=== PATIENT | female | born 1995 | race American Indian/Alaskan Native ===

== ENCOUNTER 2017-12-03 07:19 | Day surgery (SDC) | payer MEDICAID ==
[2017-12-03] MEDS ORDERED: NACL 0.9% 1000 ML 1,000 ML ONE (09:44)
--- NOTE | 2017-12-03 10:04 | Anesthesia Consultation ---
Anesthesia Consult and Med Hx Date of service: 12/03/17 - Airway Anesthetic Teeth Evaluation: Good ROM Head & Neck: Adequate Mental/Hyoid Distance: Adequate Mallampati Class: Class II Intubation Access Assessment: Probably Good (redundant tissue) - Pulmonary Exam CTA: Yes - Cardiac Exam Cardiac Exam: RRR - Pre-Operative Health Status ASA Pre-Surgery Classification: ASA3 Proposed Anesthetic Plan: MAC - Pre-Anesthesia Comment Pre-Anesthesia Comments: history of migraines - Pulmonary Hx Smoking: No Hx Asthma: Yes (asthmatic episode 1 week ago w/ need for nebulizer treatment) Hx Respiratory Symptoms: Yes (steroids dc'd in Jul & asthma flares up frequently since) SOB: No (denies SOB walking level ground and up flights of stairs) COPD: No Home Oxygen Therapy: No Hx Pneumonia: No Hx Sleep Apnea: No (only snores when sick, no diagnosis of ABNER) - Cardiovascular System Hx Hypertension: No Hx Coronary Artery Disease: No Hx Heart Attack/AMI: No Hx Angina: No Hx Percutaneous Transluminal Coronary Angioplasty (PTCA): No Hx Cardia Arrhythmia: No Hx Pacemaker: No Hx Internal Defibrillator: No Hx Valvular Heart Disease: No Hx Heart Murmur: No Hx Peripheral Vascular Disease: No - Central Nervous System Hx Neuromuscular Disorder: No Hx Seizures: No CVA: No Hx Back Pain: No Hx Psychiatric Problems: No - Gastrointestinal Hx Ulcer: No Hx Gastroesophageal Reflux Disease: No - Endocrine Hx Renal Disease: No Hx End Stage Renal Disease: No Hx Cirrhosis: No Hx Liver Disease: No Hx Insulin Dependent Diabetes: Yes (DKA in Jul BG>800; accu check 140 this am) Hx Non-Insulin Dependent Diabetes: No Hx Thyroid Disease: No Hx Hypothyroidism: No Hx Hyperthyroidism: No - Hematic Hx Anemia: No Hx Sickle Cell Disease: No - Other Systems Hx Alcohol Use: No Hx Substance Use: No Hx Cancer: No Hx Obesity: Yes (BMI 53.9)
[2017-12-03] MEDS ORDERED: NACL 0.9% 1000 ML 1,000 ML IV SCH (11:00)
[2017-12-03] MEDS ORDERED: DIPRIVAN 10 MG/ML IV ONE ×2 (11:48→12:18)
--- NOTE | 2017-12-03 12:07 | Operative Report ---
Operative Report Operative Report: PERATIVE REPORT - EGD DATE 12/03/17 SURGERY: Upper endoscopy. SURGEON: Dr. Perez [employer] SUPERVISOR: Ez Garcia DO PRE OP DX:dyspepsia, morbid obesity POST OP DX: hiatal hernia TYPE OF ANESTHESIA: MAC. ESTIMATED BLOOD LOSS: None. COMPLICATIONS: None. SPECIMENS REMOVED: None. FINDINGS: 1. Small hiatal hernia. 2. Otherwise, normal esophagus, stomach and first portion of duodenum. INDICATIONS:INDICATION FOR PROCEDURE: Patient is a 22-year-old female with a long history of morbid obesity. She is planned to have a weight loss procedure and is here for preoperative planning EGD. PROCEDURE DETAILS: After consent was reviewed, patient was taken back to the operating room where patient was placed in the left lateral decubitus position and a bite block was placed in the mouth. After a time-out was called, MAC anesthesia was initiated. I then passed the endoscope into her oropharynx, into her esophagus, visualized the entire esophagus, which was all within normal limits. I then visualized the stomach and the first portion of the duodenum and there were no abnormalities I could clearly visualize. I then retroflexed the scope in the stomach and visualized the hiatus and I could see a small hiatal hernia. I then desufflated the stomach and removed the endoscope. Patient tolerated procedure well and was transferred to recovery room in good and stable condition.
--- NOTE | 2017-12-03 12:08 | Discharge Summary ---
Providers - Providers Attending physician: CLAIRE CARRILLO Primary care physician: DAVID MELARA Hospitalization Procedures: egd Hospital course: 22 y.o. F presented for EGD. She tolerated the procedure well. She was discharged home the same day. Disposition: - TO HOME OR SELFCARE Core Measure Documentation - Palliative Care Palliative Care/ Comfort Measures: Not Applicable - Core Measures Any of the following diagnoses?: none Exam - Physical Exam Narrative exam: no change from prior - Constitutional Vitals: Temp Pulse Resp BP Pulse Ox 98.6 F 70 19 142/86 97 12/03/17 10:11 12/03/17 10:11 12/03/17 10:11 12/03/17 10:11 12/03/17 10:11 Plan Follow up with: DAVID MELARA MD [Primary Care Provider] - 7 Days
[2017-12-03 12:57] VITALS: BP 133/73
[2017-12-03] MEDS ORDERED: HURRICAINE ONE 20% TOPICAL SPRAY MM (14:08)
[2017-12-03] MEDS ORDERED: HURRICAINE ONE 20% TOPICAL SPRAY MM NR (15:00)
== END 2017-12-03 07:20 | disposition home or self-care (01) ==
LOC: GIO 07:19
PROVIDERS: ATTEND Specialist
DX: K44.9 Diaphragmatic hernia without obstruction or gangrene (principal); J45.909 Unspecified asthma, uncomplicated; E66.01 Morbid (severe) obesity due to excess calories; Z68.43 Body mass index [BMI] 50.0-59.9, adult; Z88.0 Allergy status to penicillin; Z88.1 Allergy status to other antibiotic agents; Z88.6 Allergy status to analgesic agent; Z91.013 Allergy to seafood; Z91.018 Allergy to other foods; Z79.899 Other long term (current) drug therapy
CPT/HCPCS: 43235; 81025; 82962; J2704; J7030

== ENCOUNTER 2017-12-24 06:00 | Inpatient (IN) | payer MEDICAID ==
[~2017-12-24 06:00] MED LIST: APRESOLINE IV PRN; MARCAINE 0.5% INFILTRATI ONE; MYLICON PO PRN; NACL 0.9% IR ONE; REGLAN IV PRN; XYLOCAINE 1% 20 mL INFILTRATI ONE
[2017-12-24] MEDS ORDERED: LOVENOX SUB-Q NR (07:00)
[2017-12-24] MEDS ORDERED: TRANSDERM-SCOP TD SCH (07:00)
[2017-12-24] MEDS ORDERED: LEVAQUIN 500MG/100ML 500 MG/100 ML BAG IV NR (07:00)
[2017-12-24] MEDS ORDERED: FLAGYL 500 MG/100 ML 500 MG/100 ML BAG IV NR (07:00)
[2017-12-24] MEDS ORDERED: MORPHINE IV PRN (08:50)
[2017-12-24] MEDS ORDERED: VERSED IV PRN (13:09)
[2017-12-24] MEDS ORDERED: ZOFRAN IV PRN (13:09)
--- NOTE | 2017-12-24 13:13 | Anesthesia Consultation ---
Anesthesia Consult and Med Hx Date of service: 12/24/17 - Airway Anesthetic Teeth Evaluation: Good ROM Head & Neck: Adequate Mental/Hyoid Distance: Adequate Mallampati Class: Class III Intubation Access Assessment: Probably Good - Pulmonary Exam CTA: Yes - Cardiac Exam Cardiac Exam: RRR - Pre-Operative Health Status ASA Pre-Surgery Classification: ASA3 Proposed Anesthetic Plan: General - Pulmonary Hx Smoking: No Hx Asthma: Yes Hx Respiratory Symptoms: Yes (steroids dc'd in Jul & asthma flares up frequently since) SOB: No (denies SOB walking level ground and up flights of stairs) COPD: No Hx Pneumonia: No Hx Sleep Apnea: No (only snores when sick, no diagnosis of ABNER) - Cardiovascular System Hx Hypertension: No Hx Coronary Artery Disease: No Hx Heart Attack/AMI: No Hx Angina: No Hx Percutaneous Transluminal Coronary Angioplasty (PTCA): No Hx Cardia Arrhythmia: No Hx Pacemaker: No Hx Internal Defibrillator: No Hx Valvular Heart Disease: No Hx Heart Murmur: No Hx Peripheral Vascular Disease: No - Central Nervous System Hx Neuromuscular Disorder: No Hx Seizures: No CVA: No Hx Back Pain: Yes Hx Psychiatric Problems: No - Gastrointestinal Hx Ulcer: Yes Hx Gastroesophageal Reflux Disease: No - Endocrine Hx Renal Disease: No Hx End Stage Renal Disease: No Hx Cirrhosis: No Hx Liver Disease: No Hx Insulin Dependent Diabetes: Yes (DKA in Jul BG>800; accu check 140 this am) Hx Non-Insulin Dependent Diabetes: No Hx Thyroid Disease: No Hx Hypothyroidism: No Hx Hyperthyroidism: No - Hematic Hx Anemia: No Hx Sickle Cell Disease: No - Other Systems Hx Alcohol Use: No Hx Substance Use: No Hx Cancer: No Hx Obesity: Yes
--- NOTE | 2017-12-24 13:14 | Anesthesia Day of Surgery ---
Anesthesia Day of Surgery - Day of Surgery Patient Examined: Yes Patient H&P Reviewed: Yes Patient is NPO: Yes
[2017-12-24] MEDS ORDERED: NACL BACTERIOSTATIC INFILTRATI ONE (13:50)
[2017-12-24] MEDS ORDERED: PEPCID IV NR (14:00)
[2017-12-24] MEDS: LACTATED RINGERS 1,000 ML IV SCH ×2 (14:10→20:46)
[2017-12-24] MEDS ORDERED: DIPRIVAN 10 MG/ML IV ONE (14:54)
[2017-12-24] MEDS ORDERED: SUBLIMAZE ONE (14:54)
[2017-12-24] MEDS ORDERED: XYLOCAINE 1% 20 mL ONE (14:56)
[2017-12-24] MEDS ORDERED: MARCAINE 0.5% 30 ML INFILTRATI ONE (14:57)
[2017-12-24 15:02] LABS: Bacteria,Urine 2+ /HPF (Negative); Bilirubin,Urine NEG (Negative); Blood,Urine NEG (Negative); Color,Urine Amber (Yellow); Mucus,Urine 3+ /HPF; Urobilinogen,Urine < 2.0 mg/dL (<2.0)
[2017-12-24 15:11] LABS: Alanine Aminotransferase 12 units/L (7-56); Albumin 4.4 g/dL (3.9-5); BUN/Creatinine Ratio 13; Blood Urea Nitrogen 8 mg/dL (7-17); Calcium 9.4 mg/dL (8.4-10.2); Hemolysis Index 49
[2017-12-24] MEDS ORDERED: ZOFRAN ONE (17:18)
[2017-12-24] MEDS ORDERED: XYLOCAINE MPF 2% ONE (17:18)
[2017-12-24] MEDS ORDERED: BLOXIVERZ ONE ×2 (17:19)
[2017-12-24] MEDS ORDERED: ROBINUL ONE (17:19)
[2017-12-24] MEDS: DILAUDID IV PRN ×3 (17:29→20:29)
[2017-12-24] MEDS ORDERED: ZEMURON IV ONE (17:30)
--- NOTE | 2017-12-24 20:31 | Operative Report ---
Operative Report Operative Report: PREOPERATIVE DIAGNOSES: Morbid obesity POSTOPERATIVE DIAGNOSES: 1.same as pre-op SURGEON: Dr. Perez WASTE HAND: Dr.Speights Thomas DO PROCEDURE: 1. laparoscopic sleeve gastrectomy 2. laparoscopic hiatal hernia repair ANESTHESIA: General. ESTIMATED BLOOD LOSS: 5 mL. COMPLICATIONS: None. SPECIMEN: Partial gastrectomy. FINDINGS: 1. hiatal hernia INDICATION FOR PROCEDURE: Patient is 22 year-old with a long history of morbid obesity. The patient has tried multiple efforts at weight loss without alf success. Pt is here today for sleeve gastrectomy. PROCEDURE IN DETAIL: After consent was reviewed, patient was taken back to the operating room, where patient was placed supine on the bed with both arms out. The patient's legs were doubly strapped to the bed. Patient had a foot board in place. Patient had a body warmer placed by anesthesia. Patient was then prepped and draped in normal sterile surgical fashion. After a time-out was called, a stab incision in the left upper quadrant and inserted a veress needle through this incision and insufflated the abdomen to 18 mmHg pressure. Once the abdomen was adequately insuflated an incision was made in the umbilicus and a 15mm trocar was inserted via optiveiw technique with a 10-0 camera. I then placed a 45-degree scope through this port and inspected the abdomen. There was no injury on entry of the abdomen or at the site of the veress needle placement. The veress needle was then removed. I then placed two 5-mm ports in the right upper quadrant, one along the anterior axillary line and 1 subxiphoid below the costovertebral angle. I then placed left upper quadrant port along the anterior axillary line in a similar fashion. An additional 5mm port was placed left mid quadrant. Propr to each port placement local anesthesia was used. I then placed the liver retractor through the subxiphoid port and placed the patient in full reverse Trendelenburg. The right and left crura were skeletonized accentuating a moderate hiatal hernia. The GE juction was below the level of the diaphragm. A dissection downward 1-2cm of esophagus was intrabadominal without tension. An anterior cruraplasty was perfromed with a figure-of-8 stitch using Endostich with 0 ethibond suture to reapproximate the crura. An additional single suture was place in a similar fashion. I then identified the pylorus and then counted off 6cm from the pylorus. I then used a LigaSure cutting device to enter into the lesser sac. At that point and then I took down the short gastrics all the way up to the left ramona. Then I had anesthesia pass down a 40 Armenian bougie along the lesser curvature of the stomach. I made sure everything else was out of the abdomen except the bougie. I then created my gastric sleeve using a 60-mm laparoscopic stapler. . The sleeve looked good without any twisting or torsion. I then had anesthesia to remove the bougie. Hemostasis was obtained. No further bleeding was noted. I observed the staple line for 45 sec and noted no bleeding. I then used Tiseel along the entirety of the staple line and some on the liver. I then removed liver grasper and took it off the field. I then removed the stomach through the 15-mm umbilcal port. I then closed that fascia with a #1 PDS in a [id number] fashion using a Clement-Patt. I then desufflated the abdomen and then removed all port sites. I then closed the incisions with 4-0 Monocryl in subcuticular fashion. I then dressed the wounds with steristrips, gauze and tegaderms. Patient tolerated the procedure well and was transferred to recovery room in good and stable condition
[2017-12-24] MEDS: ZOFRAN IV PRN (20:34)
[2017-12-24] MEDS ORDERED: PULMICORT 1 MG, BROVANA NEBU 15 MCG IH SCH (22:00)
[2017-12-24] MEDS ORDERED: SINGULAIR PO SCH (22:00)
[2017-12-24] MEDS: PULMICORT IH SCH (22:05)
[2017-12-24] MEDS: BROVANA NEBU IH SCH (22:05)
[2017-12-24] MEDS: PROVENTIL IH SCH (22:11)
[2017-12-24] MEDS: HumaLOG SUB-Q SCH (23:08)
[2017-12-25] MEDS: DILAUDID IV PRN (00:04)
[2017-12-25] MEDS: HumaLOG SUB-Q SCH ×3 (00:09→11:48)
[2017-12-25] MEDS: PROVENTIL IH SCH ×3 (03:58→14:38)
[2017-12-25 06:06] LABS: Basophils # (Auto) 0.1 K/mm3 (0.0-0.1); Basophils % (Auto) 0.4 % (0.0-1.8); Hematocrit 38.7 % (30.3-42.9); Hemoglobin 12.5 gm/dl (10.1-14.3); Mean Corpuscular HGB Conc 32 % (30-34); Mean Corpuscular Hemoglobin 26 pg (28-32); Mean Corpuscular Volume 80 fl (79-97); Monocytes # (Auto) 0.5 K/mm3 (0.0-0.8); Monocytes % (Auto) 4.2 % (0.0-7.3); Platelet Count 348 K/mm3 (140-440); Red Blood Count 4.82 M/mm3 (3.65-5.03); Red Cell Distribution Width 15.5 % (13.2-15.2)
[2017-12-25] MEDS: LACTATED RINGERS 1,000 ML IV SCH ×2 (06:15→12:24)
[2017-12-25] MEDS: ZOFRAN IV PRN (06:17)
[2017-12-25 06:26] LABS: BUN/Creatinine Ratio 10; Blood Urea Nitrogen 6 mg/dL (7-17); Calcium 9.2 mg/dL (8.4-10.2); Hemolysis Index 2
[2017-12-25] MEDS: BROVANA NEBU IH SCH (08:43)
[2017-12-25] MEDS: PULMICORT IH SCH (08:44)
[2017-12-25] MEDS: NORCO PO PRN ×3 (08:50→18:02)
[2017-12-25] MEDS ORDERED: TOPAMAX PO SCH (10:00)
[2017-12-25] MEDS ORDERED: LOVENOX SUB-Q SCH ×2 (10:00)
[2017-12-25 17:13] VITALS: BP 146/90
--- NOTE | 2017-12-25 17:51 | Discharge Summary ---
Providers - Providers Date of Admission: 12/24/17 09:09 Attending physician: CLAIRE CARRILLO Primary care physician: DAVID MELARA Hospitalization Reason for admission: bariatric surgery Procedures: laparoscopic sleeve gastrectomy with hiatal hernia repair Hospital course: 22 y.o. F presented to the hospital for bariatric surgery. She underwent a laparoscopic sleeve gastrectomy with hiatal hernia repair. She tolerated the procedure well. On POD 1 she ambulated and tolerated liquids. I explained the importance of ambulating often to prevent a DVT or PE. Her pain was controlled with medication my mouth. She denied any nausea or vomiting. Disposition: - TO HOME OR SELFCARE Core Measure Documentation - Palliative Care Palliative Care/ Comfort Measures: Not Applicable - Core Measures Any of the following diagnoses?: none Exam - Physical Exam Narrative exam: Gen: A+Oc3 Cardio RRR Lungs equal rise and fall of chest abd: soft, obese, tender at incision sites. no rebound no guarding . incision sites minimal blood tinged. - Constitutional Vitals: Temp Pulse Resp BP Pulse Ox 98.7 F 83 20 146/90 96 12/25/17 16:34 12/25/17 16:34 12/25/17 16:34 12/25/17 16:34 12/25/17 13:01 Plan Additional Instructions: Clear liquids diet for 1 week. May have thin protein shakes. No lifting >15 lbs for 6 weeks. Goal fluid intake is 64 oz. Goal protein intake is 60g. Walk often. Sleep 4 hrs at night and set an alarm to wake up and walk. May return to bed after walking. Follow up with: DAVID MELARA MD [Primary Care Provider] - 7 Days
== END 2017-12-25 18:55 | disposition home or self-care (01) | DRG 327 ==
LOC: 3A 09:09 → 3B-SURG 18:55
PROVIDERS: ADMIT Specialist; ATTEND Specialist
PROC: 0DB64Z3 Excision of Stomach, Percutaneous Endoscopic Approach, Vertical (ICD-10-PCS; principal; 2017-12-24)
PROC: 0BQT4ZZ Repair Diaphragm, Percutaneous Endoscopic Approach (ICD-10-PCS; 2017-12-24)
DX: K44.9 Diaphragmatic hernia without obstruction or gangrene (principal); Z68.43 Body mass index [BMI] 50.0-59.9, adult; E66.01 Morbid (severe) obesity due to excess calories; E11.9 Type 2 diabetes mellitus without complications; J45.909 Unspecified asthma, uncomplicated; Z87.11 Personal history of peptic ulcer disease; Z83.3 Family history of diabetes mellitus; Z82.49 Family history of ischemic heart disease and other diseases of the circulatory system; Z79.899 Other long term (current) drug therapy
CPT/HCPCS: 36415; 80048; 80053; 81001; 81025; 82962; 83735; 85025; 88307; 94640; 94760; C9250; J1170; J1650; J1956; J2250; J2270; J2405; J2704; J2710; J2765; J3010; J7120

== ENCOUNTER 2020-10-23 19:28 | Emergency (ER) | payer OTHER, MEDICAID ==
[2020-10-23 20:59] VITALS: BP 143/90
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
== END 2020-10-23 21:45 | disposition left against medical advice (07) ==
LOC: ED 19:28
DX: S29.012A Strain of muscle and tendon of back wall of thorax, initial encounter (principal); Z53.21 Procedure and treatment not carried out due to patient leaving prior to being seen by health care provider; X58.XXXA Exposure to other specified factors, initial encounter; Y93.89 Activity, other specified; Y92.89 Other specified places as the place of occurrence of the external cause; Y99.8 Other external cause status